=== PATIENT | female | born 1995 | race African-American/Black ===

== ENCOUNTER 2019-07-14 19:14 | Emergency (ER) | payer OTHER ==
[~2019-07-14] VITALS: Ht 154.9 cm; Wt 105.9 kg
[~2019-07-14 19:14] MED LIST: ARIP2 PO; CITA10TA68 PO; FERR324T4 PO; LEVO500 PO
[2019-07-14] MEDS ORDERED: FLUO10TA3 PO (20:08)
[2019-07-14] MEDS ORDERED: TRAZ-184 PO (20:08)
[2019-07-14] MEDS ORDERED: PRAZ2CAP2 PO (20:09)
[2019-07-14] MEDS ORDERED: IPRATROPIUM BROMIDE 0.5 MG/2.5 ML NEB SOLUTION NEB ONE (20:15)
[2019-07-14] MEDS ORDERED: ALBUTEROL SULFATE 2.5 MG/0.5 ML NEB SOLUTION NEB ONE (20:15)
[2019-07-15 00:30] VITALS: BP 118/72
[2019-07-15] MEDS ORDERED: DEXAMETHASONE 4 MG TABLET PO ONE (00:30)
== END 2019-07-15 00:54 | disposition home or self-care (01) ==
LOC: EMS 19:27
DX: J45.909 Unspecified asthma, uncomplicated (principal); F20.9 Schizophrenia, unspecified; Z88.8 Allergy status to other drugs, medicaments and biological substances
CPT/HCPCS: 71046; 81025; 94640; 99283; J8540; 94060

== ENCOUNTER 2020-02-03 13:35 | Inpatient (IN) | payer MEDICAID ==
[~2020-02-03] VITALS: Ht 154.9 cm; Wt 114.4 kg
[~2020-02-03 13:35] MED LIST changes: -ARIP2 PO; -CITA10TA68 PO; -FERR324T4 PO; +FLUO10TA3 PO; -LEVO500 PO; +PRAZ2CAP2 PO; +TRAZ-184 PO
[2020-02-03] MEDS ORDERED: PRAZ1 PO (14:01)
[2020-02-03] MEDS ORDERED: FLUO-191 PO (14:01)
[2020-02-03] MEDS ORDERED: TRAZ-257 PO (14:01)
[2020-02-03] MEDS ORDERED: GABA-1181 PO (14:01)
[2020-02-03] MEDS ORDERED: QUEtiapine FUMARATE 100 MG TABLET PO PRN (21:00)
[2020-02-03 21:20] VITALS: BP 124/76
[2020-02-03] MEDS ORDERED: PNEUMOCOCCAL VACCINE POLYVALENT 0.5 ML VIAL [PPSV23] IM ONE (21:30)
[2020-02-03] MEDS: ZOLPIDEM TARTRATE 10 MG TABLET PO PRN (22:36)
[2020-02-04 05:34] VITALS: BP 125/77
[2020-02-04 08:10] LABS: BASOPHILS % (AUTO) 0.5 % (0.0-2.0); EOSINOPHILS % (AUTO) 4.4 % (1.0-6.0); HEMATOCRIT 35.6 % (36-46); HEMOGLOBIN 11.1 g/dL (12.0-16.0); LYMPHOCYTES # (AUTO) 3.2 K/uL (1.0-4.8); LYMPHOCYTES % (AUTO) 49.4 % (22.0-44.0); MEAN CORPUSCULAR HEMOGLOBIN 25.5 pg (26.0-34.0); MEAN CORPUSCULAR HGB CONC 31.3 G/dL (31.0-37.0); MEAN CORPUSCULAR VOLUME 82 fL (80-100); MONOCYTES # (AUTO) 0.4 K/uL (0.1-1.0); MONOCYTES % (AUTO) 6.6 % (2.0-9.0); NEUTROPHILS # (AUTO) 2.5 K/uL (1.8-7.7); NEUTROPHILS % (AUTO) 39.1 % (40.0-70.0); PLATELET COUNT (AUTO) 329 K/uL (150-450); RED BLOOD CELL COUNT(AUTO) 4.37 MIL/uL (4.00-5.20); RED CELL DISTRIBUTION WIDTH 17.3 % (11.5-14.5)
[2020-02-04 08:29] LABS: ALANINE AMINOTRANSFERASE 16 U/L (12-78); ALBUMIN 2.7 g/dL (3.4-5.0); ALKALINE PHOSPHATASE 67 U/L (46-116); ANION GAP 6 mmol/L (8-16); ASPARTATE AMINOTRANSFERASE 12 U/L (15-37); BILIRUBIN,TOTAL 0.1 mg/dL (0.1-1.0); CALCIUM, TOTAL 8.4 mg/dL (8.8-10.5); CARBON DIOXIDE 27 mmol/L (22-29); CHLORIDE 107 mmol/L (98-107); CHOL/HDL RATIO 6.9 (3.9-5.7); CHOLESTEROL 180 mg/dL (131-200); CREATININE 0.84 mg/dL (0.60-1.30); FREE T4 (FREE THYROXINE) 0.85 ng/dL (0.76-1.46); GLOMERULAR FILTR. RATE CALC > 60 mL/min (>60); GLUCOSE,RANDOM 85 mg/dL (70-110); HCG,QUANTITATIVE < 1 mIU/mL (0-6); HDL CHOLESTEROL 26 mg/dL (40-60); LDL CHOL (CALC.) 121 mg/dL (0-130); POTASSIUM 3.6 mmol/L (3.5-5.1); SODIUM SERUM 140 mmol/L (136-145); THYROID STIMULATING HORMONE 0.86 uIU/mL (0.36-3.74); TOTAL PROTEIN, SERUM 6.6 g/dL (6.4-8.2); TRIGLYCERIDES 165 mg/dL (15-150); UREA NITROGEN, BLOOD 10 mg/dL (7-18)
[2020-02-04] MEDS ORDERED: CloNIDine HCL 0.1 MG TABLET PO PRN (08:30)
[2020-02-04] MEDS ORDERED: ONDANSETRON HCL 4 MG TABLET PO PRN (08:30)
[2020-02-04] MEDS ORDERED: LOPERAMIDE HCL 2 MG CAPSULE PO PRN (08:30)
[2020-02-04] MEDS ORDERED: MAG HYDROX/AL HYDROX/SIMETH ES 30 ML SUSPENSION UDCUP PO PRN (08:30)
[2020-02-04] MEDS ORDERED: PETROLATUM,WHITE 28 GM JELLY TP PRN (08:30)
[2020-02-04] MEDS ORDERED: GuaiFENesin/D-METHORPHAN [SUGAR-FREE] 200-20MG/10 ML SYRUP UDCUP PO PRN (08:30)
[2020-02-04] MEDS ORDERED: NICOTINE 14 MG/24 HOUR PATCH TD PRN (08:30)
[2020-02-04] MEDS ORDERED: MAGNESIUM HYDROXIDE SUSPENSION 30 ML UDCUP PO PRN (08:30)
[2020-02-04] MEDS ORDERED: DOCUSATE SODIUM 100 MG CAPSULE PO PRN (08:30)
[2020-02-04 08:42] LABS: HEMOGLOBIN A1C 5.3 % (3.8-5.6)
[2020-02-04] MEDS: BACITRACIN 28.4 GM OINTMENT TP SCH ×2 (09:00→17:35)
[2020-02-04] MEDS: NYSTATIN 30 GM CREAM TP SCH ×2 (09:00→17:35)
[2020-02-04] MEDS: LORazepam 2 MG TABLET PO PRN (14:08)
[2020-02-04] MEDS: LURASIDONE HCL 40 MG TABLET PO SCH (17:22)
[2020-02-04 18:56] VITALS: BP 131/88
[2020-02-04] MEDS: PRAZOSIN HCL 1 MG CAPSULE PO SCH (20:22)
[2020-02-05 00:43] VITALS: BP 121/68
[2020-02-05] MEDS: FLUoxetine HCL 20 MG CAPSULE PO SCH (08:22)
[2020-02-05 08:41] VITALS: BP 128/84
[2020-02-05 08:52] LABS: % IRON SATURATION 6.3 % (22-44)
[2020-02-05] MEDS: NYSTATIN 30 GM CREAM TP SCH ×2 (09:00→17:21)
[2020-02-05] MEDS: BACITRACIN 28.4 GM OINTMENT TP SCH ×2 (09:00→17:20)
[2020-02-05] MEDS: LORazepam 2 MG TABLET PO PRN (14:45)
[2020-02-05 16:16] VITALS: BP 150/85
[2020-02-05] MEDS: LURASIDONE HCL 40 MG TABLET PO SCH (16:57)
[2020-02-05] MEDS: PRAZOSIN HCL 1 MG CAPSULE PO SCH (20:18)
[2020-02-05] MEDS: ZOLPIDEM TARTRATE 10 MG TABLET PO PRN (22:52)
[2020-02-06 00:10] VITALS: BP 140/95
[2020-02-06] MEDS: LORazepam 2 MG TABLET PO PRN ×2 (00:14→17:46)
[2020-02-06 04:10] VITALS: BP 138/78
[2020-02-06 08:48] VITALS: BP 125/71
[2020-02-06] MEDS: NYSTATIN 30 GM CREAM TP SCH ×2 (09:00→17:50)
[2020-02-06] MEDS: FLUoxetine HCL 20 MG CAPSULE PO SCH (09:00)
[2020-02-06] MEDS: BACITRACIN 28.4 GM OINTMENT TP SCH ×2 (09:00→17:50)
[2020-02-06] MEDS: ACETAMINOPHEN 325 MG TABLET PO PRN (14:14)
[2020-02-06 16:00] VITALS: BP 117/82
[2020-02-06] MEDS: LURASIDONE HCL 40 MG TABLET PO SCH (17:05)
[2020-02-06 20:35] VITALS: BP 130/80
[2020-02-06] MEDS: PRAZOSIN HCL 1 MG CAPSULE PO SCH (20:37)
[2020-02-06] MEDS: IBUPROFEN 400 MG TABLET PO PRN (21:50)
[2020-02-06] MEDS: ZOLPIDEM TARTRATE 10 MG TABLET PO PRN (22:05)
[2020-02-07] MEDS: FLUoxetine HCL 20 MG CAPSULE PO SCH (08:46)
[2020-02-07] MEDS: BACITRACIN 28.4 GM OINTMENT TP SCH ×2 (08:53→17:37)
[2020-02-07] MEDS: NYSTATIN 30 GM CREAM TP SCH ×2 (08:53→17:37)
[2020-02-07] MEDS: IBUPROFEN 400 MG TABLET PO PRN (08:53)
[2020-02-07 09:18] VITALS: BP 123/73
[2020-02-07] MEDS: ALBUTEROL SULFATE HFA 90 MCG/PUFF 8 GM INHALER IH PRN (10:15)
[2020-02-07] MEDS: LORazepam 2 MG TABLET PO PRN ×2 (12:43→17:38)
[2020-02-07] MEDS: LURASIDONE HCL 40 MG TABLET PO SCH (16:41)
[2020-02-07] MEDS: ACETAMINOPHEN 325 MG TABLET PO PRN (17:38)
[2020-02-07 18:08] VITALS: BP 125/75
[2020-02-07] MEDS: ZOLPIDEM TARTRATE 10 MG TABLET PO PRN (21:00)
[2020-02-07] MEDS: PRAZOSIN HCL 1 MG CAPSULE PO SCH (21:00)
[2020-02-07] MEDS: MENTHOL/ZINC OXIDE 113 GM OINTMENT TP SCH (21:04)
[2020-02-08 01:56] VITALS: BP 120/78
[2020-02-08] MEDS: BACITRACIN 28.4 GM OINTMENT TP SCH ×2 (08:09→16:17)
[2020-02-08] MEDS: LORazepam 2 MG TABLET PO PRN ×2 (08:09→13:58)
[2020-02-08] MEDS: MENTHOL/ZINC OXIDE 113 GM OINTMENT TP SCH ×2 (08:09→21:00)
[2020-02-08] MEDS: FLUoxetine HCL 20 MG CAPSULE PO SCH (08:09)
[2020-02-08] MEDS: NYSTATIN 30 GM CREAM TP SCH ×2 (08:10→16:17)
[2020-02-08 08:41] VITALS: BP 141/97
[2020-02-08] MEDS: ACETAMINOPHEN 325 MG TABLET PO PRN (13:01)
[2020-02-08] MEDS: LURASIDONE HCL 40 MG TABLET PO SCH (16:14)
[2020-02-08 16:21] VITALS: BP 127/83
[2020-02-08] MEDS: PRAZOSIN HCL 1 MG CAPSULE PO SCH (21:00)
[2020-02-09 06:39] VITALS: BP 126/78
[2020-02-09] MEDS: FLUoxetine HCL 20 MG CAPSULE PO SCH (09:30)
[2020-02-09] MEDS: OMEGA-3/DHA/EPA/FISH OIL 1,000 MG CAPSULE PO SCH (09:30)
[2020-02-09] MEDS: MULTIVITAMINS WITH MINERALS, THERAPEUTIC TABLET PO SCH (09:31)
[2020-02-09] MEDS: BACITRACIN 28.4 GM OINTMENT TP SCH ×2 (09:31→17:55)
[2020-02-09] MEDS: NYSTATIN 30 GM CREAM TP SCH ×2 (09:31→17:55)
[2020-02-09] MEDS: MENTHOL/ZINC OXIDE 113 GM OINTMENT TP SCH ×2 (09:31→21:24)
[2020-02-09 09:55] VITALS: BP 139/84
[2020-02-09] MEDS ORDERED: LORazepam 2 MG/ML VIAL ONE (12:08)
[2020-02-09] MEDS ORDERED: DiphenhydrAMINE HCL 50 MG/ML VIAL ONE (12:11)
[2020-02-09] MEDS ORDERED: FluPHENAZine HCL 2.5 MG/ML INJ IM ONE ×2 (12:11→12:45)
[2020-02-09] MEDS ORDERED: LORazepam 2 MG/ML VIAL IM ONE (12:45)
[2020-02-09] MEDS ORDERED: DiphenhydrAMINE HCL 50 MG/ML VIAL IM ONE (12:45)
[2020-02-09 16:14] VITALS: BP 119/69
[2020-02-09] MEDS: LURASIDONE HCL 40 MG TABLET PO SCH (17:55)
[2020-02-09] MEDS: ZOLPIDEM TARTRATE 10 MG TABLET PO PRN (21:20)
[2020-02-09] MEDS: PRAZOSIN HCL 1 MG CAPSULE PO SCH (21:24)
[2020-02-10 09:16] VITALS: BP 114/79
[2020-02-10] MEDS: FLUoxetine HCL 20 MG CAPSULE PO SCH (09:58)
[2020-02-10] MEDS: OMEGA-3/DHA/EPA/FISH OIL 1,000 MG CAPSULE PO SCH (09:58)
[2020-02-10] MEDS: MULTIVITAMINS WITH MINERALS, THERAPEUTIC TABLET PO SCH (09:58)
[2020-02-10] MEDS: LORazepam 2 MG TABLET PO PRN (12:54)
[2020-02-10] MEDS: LURASIDONE HCL 40 MG TABLET PO SCH (16:48)
[2020-02-10] MEDS: BACITRACIN 28.4 GM OINTMENT TP SCH (17:58)
[2020-02-10] MEDS: NYSTATIN 30 GM CREAM TP SCH (17:58)
[2020-02-10] MEDS: MENTHOL/ZINC OXIDE 113 GM OINTMENT TP SCH ×2 (17:58→21:02)
[2020-02-10] MEDS: PRAZOSIN HCL 1 MG CAPSULE PO SCH (20:21)
[2020-02-10] MEDS: ZOLPIDEM TARTRATE 10 MG TABLET PO PRN (21:08)
[2020-02-10] MEDS: ALBUTEROL SULFATE HFA 90 MCG/PUFF 8 GM INHALER IH PRN (21:50)
[2020-02-10] MEDS ORDERED: LORazepam 2 MG/ML VIAL IM ONE (22:00)
[2020-02-10] MEDS ORDERED: ChlorproMAZINE HCL 25 MG/ML 2 ML AMP IM ONE (22:00)
[2020-02-10] MEDS ORDERED: DiphenhydrAMINE HCL 50 MG/ML VIAL IM ONE (22:00)
[2020-02-11 00:17] VITALS: BP 127/76
[2020-02-11] MEDS: NYSTATIN 30 GM CREAM TP SCH ×2 (09:00→17:00)
[2020-02-11] MEDS: MENTHOL/ZINC OXIDE 113 GM OINTMENT TP SCH ×2 (09:00→20:30)
[2020-02-11] MEDS: MULTIVITAMINS WITH MINERALS, THERAPEUTIC TABLET PO SCH (09:00)
[2020-02-11] MEDS: BACITRACIN 28.4 GM OINTMENT TP SCH ×2 (09:00→17:00)
[2020-02-11] MEDS: FLUoxetine HCL 20 MG CAPSULE PO SCH (09:00)
[2020-02-11] MEDS: OMEGA-3/DHA/EPA/FISH OIL 1,000 MG CAPSULE PO SCH (09:00)
[2020-02-11 10:00] VITALS: BP 139/91
[2020-02-11] MEDS: LURASIDONE HCL 40 MG TABLET PO SCH (17:00)
[2020-02-11] MEDS: ACETAMINOPHEN 325 MG TABLET PO PRN (18:38)
[2020-02-11 20:25] VITALS: BP 132/84
[2020-02-11] MEDS: PRAZOSIN HCL 1 MG CAPSULE PO SCH (20:29)
[2020-02-11] MEDS: LORazepam 2 MG TABLET PO PRN (21:33)
[2020-02-12 05:30] VITALS: BP 128/82
[2020-02-12] MEDS: BACITRACIN 28.4 GM OINTMENT TP SCH ×2 (09:00→17:00)
[2020-02-12] MEDS: NYSTATIN 30 GM CREAM TP SCH ×2 (09:00→17:00)
[2020-02-12] MEDS: OMEGA-3/DHA/EPA/FISH OIL 1,000 MG CAPSULE PO SCH (09:29)
[2020-02-12] MEDS: MULTIVITAMINS WITH MINERALS, THERAPEUTIC TABLET PO SCH (09:29)
[2020-02-12] MEDS: FLUoxetine HCL 20 MG CAPSULE PO SCH (09:29)
[2020-02-12] MEDS: MENTHOL/ZINC OXIDE 113 GM OINTMENT TP SCH ×2 (09:34→20:14)
[2020-02-12 10:09] VITALS: BP 124/64
[2020-02-12] MEDS: ACETAMINOPHEN 325 MG TABLET PO PRN (13:02)
[2020-02-12] MEDS: LORazepam 2 MG TABLET PO PRN ×2 (13:02→18:42)
[2020-02-12 16:15] VITALS: BP 120/66
[2020-02-12] MEDS ORDERED: LURASIDONE HCL 60 MG TABLET PO SCH (17:00)
[2020-02-12 20:00] VITALS: BP 121/77
[2020-02-12] MEDS: PRAZOSIN HCL 1 MG CAPSULE PO SCH (20:13)
[2020-02-13 08:15] VITALS: BP_SYST 129
[2020-02-13] MEDS: OMEGA-3/DHA/EPA/FISH OIL 1,000 MG CAPSULE PO SCH (08:59)
[2020-02-13] MEDS: MULTIVITAMINS WITH MINERALS, THERAPEUTIC TABLET PO SCH (08:59)
[2020-02-13] MEDS: FLUoxetine HCL 20 MG CAPSULE PO SCH (08:59)
[2020-02-13] MEDS: NYSTATIN 30 GM CREAM TP SCH (09:00)
[2020-02-13] MEDS: MENTHOL/ZINC OXIDE 113 GM OINTMENT TP SCH (09:00)
[2020-02-13] MEDS: BACITRACIN 28.4 GM OINTMENT TP SCH (09:00)
[2020-02-13] MEDS ORDERED: FLUO-191 PO (10:54)
[2020-02-13] MEDS ORDERED: PRAZ1 PO (10:54)
[2020-02-13] MEDS ORDERED: LURA60TA PO (10:54)
== END 2020-02-13 13:35 | disposition home or self-care (01) | DRG 885 ==
LOC: B2S 21:20
DX: F25.1 Schizoaffective disorder, depressive type (principal); F79 Unspecified intellectual disabilities; R45.851 Suicidal ideations; B36.9 Superficial mycosis, unspecified; D64.9 Anemia, unspecified; E78.5 Hyperlipidemia, unspecified; F17.200 Nicotine dependence, unspecified, uncomplicated; F12.90 Cannabis use, unspecified, uncomplicated; F32.9 Major depressive disorder, single episode, unspecified; J45.909 Unspecified asthma, uncomplicated; K59.00 Constipation, unspecified; Z79.899 Other long term (current) drug therapy; Z91.5 Personal history of self-harm; Z88.8 Allergy status to other drugs, medicaments and biological substances
CPT/HCPCS: 83036; 83540; 83550; 84439; 84443; 90732; J1200; J2060; J3230; J3490; J3535